=== PATIENT | male | born 1995 | race Caucasian/White ===

== ENCOUNTER 2018-10-03 19:22 | Emergency (ER) | payer BC ==
[~2018-10-03] VITALS: Ht 182.9 cm; Wt 122.7 kg
[2018-10-03 19:23] VITALS: TEMP 98
[2018-10-03] MEDS ORDERED: CRUTCHES MC (20:12)
[2018-10-03 20:24] VITALS: BP 122/71; PULSE 88
== END 2018-10-03 20:33 | disposition home or self-care (01) ==
LOC: COL.ER 19:22
DX: S99.912A Unspecified injury of left ankle, initial encounter (principal); W20.8XXA Other cause of strike by thrown, projected or falling object, initial encounter; Y92.59 Other trade areas as the place of occurrence of the external cause; Y99.0 Civilian activity done for income or pay

== ENCOUNTER 2024-02-23 21:41 | Emergency (ER) | payer BC ==
[~2024-02-23] VITALS: Ht 182.9 cm; Wt 129.5 kg
[~2024-02-23 21:41] MED LIST: CRUTCHES MC
[2024-02-23 21:47] VITALS: BP 136/83; TEMP 98.1
[2024-02-23 23:06] VITALS: PULSE 70
== END 2024-02-23 23:07 | disposition home or self-care (01) ==
LOC: COL.ER 21:41
DX: S61.210A Laceration without foreign body of right index finger without damage to nail, initial encounter (principal); W27.0XXA Contact with workbench tool, initial encounter